=== PATIENT | female | born 1975 | race Caucasian/White ===

== ENCOUNTER 2023-05-18 16:52 | Emergency (ER) | payer MEDICAID ==
[2023-05-18] MEDS: traMADol 50 MG Tab PO STA (18:33)
== END 2023-05-18 18:51 | disposition home or self-care (01) ==
LOC: MW.ED 16:52
DX: M25.561 Pain in right knee (principal); I10 Essential (primary) hypertension; Z75.8 Other problems related to medical facilities and other health care; Z79.899 Other long term (current) drug therapy; Z86.19 Personal history of other infectious and parasitic diseases
CPT/HCPCS: 73562; 99283; A9270